=== PATIENT | female | born 1995 | race Two or more races ===

== ENCOUNTER 2022-05-12 09:24 | Emergency (ER) | payer OTHER ==
[~2022-05-12] VITALS: Ht 167.6 cm; Wt 61.7 kg
[2022-05-12] MEDS ORDERED: FOLIC ACID0.8 MG PO (09:29)
== END 2022-05-12 12:52 | disposition home or self-care (01) ==
LOC: ER 09:24
DX: O26.91 Pregnancy related conditions, unspecified, first trimester (principal); Z3A.10 10 weeks gestation of pregnancy; R10.9 Unspecified abdominal pain; Z88.0 Allergy status to penicillin

== ENCOUNTER 2022-05-26 10:58 | Outpatient (CLI) | payer OTHER ==
[~2022-05-26 10:58] MED LIST: FOLIC ACID0.8 MG PO
== END 2022-05-26 12:20 | disposition home or self-care (01) ==
LOC: PRENATAL 10:58
PROVIDERS: ATTEND Obstetrics & Gynecology Maternal & Fetal Medicine
DX: O36.80X0 Pregnancy with inconclusive fetal viability, not applicable or unspecified (principal); Z36 Encounter for antenatal screening of mother; Z3A.12 12 weeks gestation of pregnancy

== ENCOUNTER 2022-07-21 13:06 | Outpatient (CLI) | payer OTHER | END 2022-07-21 14:15 | disposition home or self-care (01) | LOC: PRENATAL 13:06 | PROVIDERS: ATTEND Obstetrics & Gynecology Maternal & Fetal Medicine | DX: O35.9XX0 Maternal care for (suspected) fetal abnormality and damage, unspecified, not applicable or unspecified (principal); O35.3XX0 Maternal care for (suspected) damage to fetus from viral disease in mother, not applicable or unspecified; Z14.8 Genetic carrier of other disease; Z3A.20 20 weeks gestation of pregnancy ==

== ENCOUNTER 2022-08-03 13:26 | Emergency (ER) | payer OTHER ==
[~2022-08-03] VITALS: Ht 165.1 cm; Wt 65.8 kg
== END 2022-08-03 14:12 | disposition home or self-care (01) ==
LOC: ER 13:26
DX: K64.9 Unspecified hemorrhoids (principal)

== ENCOUNTER 2022-09-08 08:58 | Emergency (ER) | payer OTHER ==
[~2022-09-08] VITALS: Ht 165.1 cm; Wt 70.3 kg
== END 2022-09-08 12:17 | disposition home or self-care (01) ==
LOC: ER 08:58
DX: J06.9 Acute upper respiratory infection, unspecified (principal); Z20.822 Contact with and (suspected) exposure to COVID-19

== ENCOUNTER 2022-10-09 11:18 | Emergency (ER) | payer OTHER ==
[~2022-10-09] VITALS: Ht 167.6 cm; Wt 75.3 kg
[2022-10-09] MEDS ORDERED: FE C PLUS TABL1 EACH (11:34)
[2022-10-09] MEDS ORDERED: CEFUROXIME500 MG PO (14:18)
[2022-10-09] MEDS ORDERED: TUSNEL LIQUID178 ML PO (14:18)
[2022-10-09] MEDS ORDERED: ZYRTEC10 M3 PO (14:18)
== END 2022-10-09 14:19 | disposition home or self-care (01) ==
LOC: ER 11:18
DX: O99.513 Diseases of the respiratory system complicating pregnancy, third trimester (principal); J06.9 Acute upper respiratory infection, unspecified; O23.43 Unspecified infection of urinary tract in pregnancy, third trimester; N39.0 Urinary tract infection, site not specified; Z3A.31 31 weeks gestation of pregnancy; Z20.822 Contact with and (suspected) exposure to COVID-19; Z88.0 Allergy status to penicillin

== ENCOUNTER 2022-10-13 09:59 | Outpatient (CLI) | payer OTHER ==
[~2022-10-13 09:59] MED LIST changes: +CEFUROXIME500 MG PO; +FE C PLUS TABL1 EACH; +TUSNEL LIQUID178 ML PO; +ZYRTEC10 M3 PO
== END 2022-10-13 11:31 | disposition home or self-care (01) ==
LOC: PRENATAL 09:59
PROVIDERS: ATTEND Obstetrics & Gynecology Maternal & Fetal Medicine
DX: O26.849 Uterine size-date discrepancy, unspecified trimester (principal); O35.3XX0 Maternal care for (suspected) damage to fetus from viral disease in mother, not applicable or unspecified; O36.8199 Decreased fetal movements, unspecified trimester, other fetus; Z3A.32 32 weeks gestation of pregnancy

== ENCOUNTER 2022-10-27 14:48 | Outpatient (CLI) | payer OTHER ==
[2022-10-27] MEDS ORDERED: IRON18 MG PO (14:51)
[2022-10-27] MEDS ORDERED: PREDNISONE10 M2 PO (14:53)
[2022-10-28] MEDS ORDERED: FERROUS SULFAT325 MG PO (07:24)
== END 2022-10-28 11:28 | disposition home or self-care (01) ==
LOC: OBS/DEL 14:48
PROVIDERS: ATTEND Specialist
DX: O26.893 Other specified pregnancy related conditions, third trimester (principal); O35.8XX0 Maternal care for other (suspected) fetal abnormality and damage, not applicable or unspecified; Z3A.34 34 weeks gestation of pregnancy; W10.8XXA Fall (on) (from) other stairs and steps, initial encounter; Y93.89 Activity, other specified; Y92.89 Other specified places as the place of occurrence of the external cause; Y99.8 Other external cause status

== ENCOUNTER 2022-11-04 14:31 | Outpatient (CLI) | payer OTHER ==
[~2022-11-04] VITALS: Ht 165.1 cm; Wt 76.7 kg
[~2022-11-04 14:31] MED LIST changes: +FERROUS SULFAT325 MG PO; +IRON18 MG PO; +PREDNISONE10 M2 PO
== END 2022-11-04 17:08 | disposition home or self-care (01) ==
LOC: OBS/DEL 14:31
PROVIDERS: ATTEND Specialist
DX: O26.893 Other specified pregnancy related conditions, third trimester (principal); Z3A.35 35 weeks gestation of pregnancy; Z88.0 Allergy status to penicillin; Z87.09 Personal history of other diseases of the respiratory system

== ENCOUNTER 2022-11-24 09:38 | Inpatient (IN) | payer OTHER ==
[~2022-11-24] VITALS: Ht 167.6 cm; Wt 81.6 kg
[2022-12-02] MEDS ORDERED: PRENATAL TABLE1 EAC4 PO (06:20)
[2022-12-02 06:46] LABS: HEMATOCRIT 29.5 % (36.0-45.00); HEMOGLOBIN 10.1 g/dL (12.0-15.00); MEAN CELL VOLUME 85.7 fL (80.00-100.00); MEAN CORPUSCULAR HEMOGLOBIN 29.4 pg (27.00-32.0); MEAN CORPUSCULAR HGB CONC 34.3 g/dl (32.0-36.0); PLATELET COUNT 134 K/uL (150-450); RED BLOOD COUNT 3.44 M/uL (4.00-6.00); RED CELL DISTRIBUTION WIDTH 13.5 % (11.5-14.5)
[2022-12-02 07:16] LABS: ALBUMIN 2.5 gm/dL (3.4-5.0); BILIRUBIN TOTAL 0.41 mg/dL (0.3-1.2); CALCIUM 8.9 mg/dL (8.5-10.1); CREATININE SERUM 0.51 mg/dL (0.55-1.02); GFR 145.77; GLOBULINA 3.5 G/DL (2.4-3.5); POTASSIUM 3.42 mEq/L (3.5-5.1)
[2022-12-02 07:22] LABS: PARTIAL THROMBOPLASTIN TIME 25.4 SECONDS (22.0-34.0)
[2022-12-03 02:17] LABS: HEMATOCRIT 27.4 % (36.0-45.00); HEMOGLOBIN 9.5 g/dL (12.0-15.00); MEAN CELL VOLUME 85.9 fL (80.00-100.00); MEAN CORPUSCULAR HEMOGLOBIN 29.9 pg (27.00-32.0); MEAN CORPUSCULAR HGB CONC 34.9 g/dl (32.0-36.0); RED BLOOD COUNT 3.19 M/uL (4.00-6.00); RED CELL DISTRIBUTION WIDTH 13.5 % (11.5-14.5)
[2022-12-03 02:38] LABS: PLATELET COUNT 126 K/uL (150-450)
[2022-12-05] MEDS ORDERED: IBUPROFEN800 MG PO (11:46)
== END 2022-12-05 14:21 | disposition home or self-care (01) | DRG 788 ==
LOC: LDR 12-02 05:25 → OB/GYN 12-02 05:25
PROVIDERS: ADMIT Specialist; ATTEND Specialist
PROC: 3E033VJ Introduction of Other Hormone into Peripheral Vein, Percutaneous Approach (ICD-10-PCS; 2022-12-02)
PROC: 3E0P7VZ Introduction of Hormone into Female Reproductive, Via Natural or Artificial Opening (ICD-10-PCS; 2022-12-02)
PROC: 4A1HXCZ Monitoring of Products of Conception, Cardiac Rate, External Approach (ICD-10-PCS; 2022-12-02)
PROC: 10D00Z1 Extraction of Products of Conception, Low, Open Approach (ICD-10-PCS; principal; 2022-12-02 17:45)
DX: O33.8 Maternal care for disproportion of other origin (principal); O99.824 Streptococcus B carrier state complicating childbirth; Z3A.39 39 weeks gestation of pregnancy; Z37.0 Single live birth; Z20.822 Contact with and (suspected) exposure to COVID-19

== ENCOUNTER 2025-01-19 02:34 | Emergency (ER) | payer OTHER ==
[~2025-01-19] VITALS: Ht 167.6 cm; Wt 63.5 kg
[~2025-01-19 02:34] MED LIST changes: +IBUPROFEN800 MG PO; +PRENATAL TABLE1 EAC4 PO
[2025-01-19] MEDS ORDERED: ACETAMINOPHEN 500 MG GEL..CAP PO ONE ×2 (04:47→05:00)
[2025-01-19 04:56] LABS: URINE APPEARANCE Clear; URINE BILIRRUBIN Negative (NEGATIVE); URINE BLOOD Moderate; URINE COLOR Yellow; URINE GLUCOSE Negative (NEGATIVE); URINE KETONE Negative (NEGATIVE); URINE LEUKOCYTE Negative; URINE NITRATE Negative; URINE PROTEIN Negative (NEGATIVE); URINE UROBILINOGEN 1.0 E.U./dl
[2025-01-19 04:57] LABS: URINE BACTERIA 97.1 uL (0.0-1933); URINE EPITHELIAL CELLS 20.4 uL (0.0-38.8); URINE WBC 16.6 uL (0.0-23.2)
[2025-01-19 04:59] LABS: URINE CAST 0.00 uL (0.0-1.40); URINE RBC 1.7 uL (0.0-20.8)
[2025-01-19] MEDS ORDERED: PROMETRIUM200 MG PO (07:06)
== END 2025-01-19 08:04 ==
LOC: ER 02:34
PROVIDERS: General Practice
DX: O20.8 Other hemorrhage in early pregnancy (principal); Z88.0 Allergy status to penicillin; Z3A.01 Less than 8 weeks gestation of pregnancy

== ENCOUNTER 2025-03-01 14:38 | Emergency (ER) | payer OTHER ==
[~2025-03-01] VITALS: Ht 167.6 cm; Wt 64.0 kg
[~2025-03-01 14:38] MED LIST changes: +PROMETRIUM200 MG PO
[2025-03-01 15:27] VITALS: BP 104/73; O2SAT 99
[2025-03-01] MEDS ORDERED: ACETAMINOPHEN 500 MG GEL..CAP PO ONE ×2 (16:00→16:43)
[2025-03-01 17:05] LABS: BASO % 0.3 % (0.1-1.2); EOS # 0.07 (0.04-0.54); EOS % 0.7 % (0.7-7.0); LYMPH # 1.66 (1.18-3.74); LYMPH % 16.2 % (19.3-53.1); MEAN PLATELET VOLUME 10.80 fl (9.4-12.4); MONO # 0.71 (0.24-0.82); MONO % 6.9 % (4.7-12.5); NEUT # 7.78 (1.56-6.13); NEUT % 75.7 % (34.0-71.1); RED CELL DISTRIBUTION WIDTH 12.5 % (11.6-14.4)
[2025-03-01 17:24] LABS: INR 0.96
[2025-03-01 17:40] LABS: BUN CREA RATIO 24.0 (7.0-25.0); CREATININE SERUM 0.42 mg/dL (0.55-1.02); GFR 178.38; GLUCOSE FASTING 92.0 mg/dL (65-100); OSMOLALITY SERUM 276.0 MOSM/KG (275-295)
[2025-03-01 17:47] LABS: URINE APPEARANCE Clear; URINE BILIRRUBIN Negative (NEGATIVE); URINE BLOOD Negative; URINE COLOR Yellow; URINE GLUCOSE Negative (NEGATIVE); URINE KETONE Negative (NEGATIVE); URINE LEUKOCYTE Trace; URINE NITRATE Negative; URINE PROTEIN Negative (NEGATIVE); URINE UROBILINOGEN 0.2 E.U./dl
[2025-03-01 17:51] LABS: URINE BACTERIA 78.9 uL (0.0-1933); URINE EPITHELIAL CELLS 11.7 uL (0.0-38.8); URINE RBC 2.8 uL (0.0-20.8); URINE WBC 19.1 uL (0.0-23.2)
[2025-03-01 18:05] LABS: URINE CAST 0.42 uL (0.0-1.40)
== END 2025-03-01 18:48 | disposition home or self-care (01) ==
LOC: ER 14:38
PROVIDERS: General Practice
DX: O26.891 Other specified pregnancy related conditions, first trimester (principal); Z3A.12 12 weeks gestation of pregnancy; R51.9 Headache, unspecified; Z88.0 Allergy status to penicillin; R07.89 Other chest pain